=== PATIENT | male | born 1960 | race Caucasian/White ===

== ENCOUNTER 2017-12-13 11:35 | Day surgery (SDC) | payer OTHER ==
[~2017-12-13] VITALS: Ht 175.3 cm; Wt 68.0 kg
[~2017-12-13 11:35] MED LIST: HYDROCODON-ACE1 EA10 PO; IBUPROFEN600 MG PO; LIPITOR20 MG PO; RANITIDINE HCL150 M1 PO; SERTRALINE HCL100 MG PO
[2017-12-13] MEDS ORDERED: AMITRIPTYLINE H25 MG PO (12:05)
[2017-12-13] MEDS ORDERED: DOCUSATE SODIU100 MG PO (12:05)
--- NOTE | 2017-12-13 14:24 | NUR ---
12/13/17 1424 Josefina Crow 1411 PT ARRIVED TO [facility] ON 3L VIA NC. PT DROWSY AND DENIES PAIN AND NAUSEA. PT ASLEEP OFF AND ON. VERONICA AT BEDSIDE.
--- NOTE | 2017-12-13 21:59 | OR ---
[facility] [address], [place] [address] Signed DATE OF OPERATION: 12/13/2017 SURGEON: Padmini Patel MD PREOPERATIVE DIAGNOSES: Episodic left lower abdominal pain and occasional rectal bleeding. POSTOPERATIVE DIAGNOSES: Normal-appearing colon and minimal internal hemorrhoidal changes. PROCEDURE: Total colonoscopy to cecum. ANESTHESIA: Intravenous sedation, fentanyl 150 mcg, Versed 5 mg. INDICATION: This 57-year-old white man is a patient of Dr. Nav Mata at [facility]. He has had recent complaints of left lower abdominal pain and episodic rectal bleeding. He has undergone upper endoscopy by me in the past. He has no family history of colon cancer that he is aware of. He does note constipation and occasions of blood per rectum in a "tearing" sensation from time to time. He showed no evidence of anal fissure so far. He was admitted at this time to undergo colonoscopy. He understands the risks of bleeding, infection, perforation. FINDINGS: The prep was good. Complete colonoscopy was undertaken to the cecum. There was no sign of polyps, diverticular formation, colitis, or cancer. He did have some minimal internal hemorrhoidal change however. I saw no sign of fissure. DESCRIPTION OF PROCEDURE: The patient was brought to the endoscopy suite and placed in lateral decubitus position given intravenous sedation to the point of slurred speech and nystagmus. Digital rectal examination was normal. An Olympus video colonoscope was passed in the rectum and manipulated throughout the colon. Abdominal wall stabilization was undertaken to allow for full intubation of the cecum, which was accomplished. The ileocecal valve and appendiceal orifice were normal. The scope was withdrawn from that point and examination throughout undertaken showing no sign of polyps, diverticular formation, colitis, or cancer. Retroflex view of the Electronically Signed By: PADMINI PATEL MD 12/13/17 2159 PATIENT NAME: OSEAS KOCH OPERATIVE REPORT DATE OF : 64 REPORT #: [id number] PHYSICIAN: PADMINI PATEL MD PCP: NAV MATA MD REPORT IS CONFIDENTIAL AND NOT TO BE RELEASED WITHOUT AUTHORIZATION [facility] [address], [place] [address] Signed rectum was normal, though there were some minimal internal hemorrhoidal changes. The scope was straightened, withdrawn, removed, and the patient was taken to recovery room in good condition. CONCLUDING DIAGNOSIS: No lesion to clearly account for left lower abdominal pain and episodic rectal bleeding. Hemorrhoids most likely cause of bleeding. PLAN: Recommend high-fiber diet and continue use of Metamucil or other fiber supplement. He will return to the ongoing care of Dr. Mata at [facility]. MD ELIEZER Lane/MODL /[id number] cc: Nav Mata MD Copies: NAV MATA MD ~ Electronically Signed By: PADMINI PATEL MD 12/13/17 2159 PATIENT NAME: OSEAS KOCH OPERATIVE REPORT DATE OF : 64 REPORT #: [id number] PHYSICIAN: PADMINI PATEL MD PCP: NAV MATA MD REPORT IS CONFIDENTIAL AND NOT TO BE RELEASED WITHOUT AUTHORIZATION
== END 2017-12-13 14:48 | disposition home or self-care (01) ==
LOC: OPS 11:35 → DS 11:35 → OPS 12:00 → DS 12:00 → OPS 14:48
PROVIDERS: Surgery
PROC: 0DJD8ZZ Inspection of Lower Intestinal Tract, Via Natural or Artificial Opening Endoscopic (ICD-10-PCS; principal; 2017-12-13 12:00)
DX: K64.8 Other hemorrhoids (principal); R13.19 Other dysphagia
CPT/HCPCS: 99153; G0500; J2250; J3010; J7120

== ENCOUNTER 2020-12-07 10:51 | Day surgery (SDC) | payer OTHER ==
[~2020-12-07] VITALS: Ht 160 cm; Wt 74.8 kg
[~2020-12-07 10:51] MED LIST changes: +AMITRIPTYLINE H25 MG PO; +DOCUSATE SODIU100 MG PO
[2020-12-07] MEDS ORDERED: MELATONIN1 MG PO (11:04)
[2020-12-07] MEDS ORDERED: OMEPRAZOLE20 MG PO (11:06)
[2020-12-07] MEDS ORDERED: CORRECTOL5 MG PO (11:06)
[2020-12-07] MEDS ORDERED: MIRTAZAPINE7.5 MG PO (11:06)
[2020-12-07] MEDS ORDERED: PREVALITE PACKET4 GM PO (11:07)
--- NOTE | 2020-12-07 12:53 | NUR ---
PT RESTING IN BED WITH WITH [employer] GUARDS AT BEDSIDE. PT DENIES ANY NEEDS AT THIS TIME AND IS UPDATED WITH APPROX TIME OF PROCEDURE.
--- NOTE | 2020-12-07 14:53 | NUR ---
12/07/20 1453 Tiffanie Wei 1439 PT ARRIVED IN PACU SLEEPY WITH NO C/O'S. ABD SOFT. TRANSPORT GUARDS AT BEDSIDE. 1450 SITTING UP IN BED SIPPING ON WATER.
--- NOTE | 2020-12-08 12:44 | OR ---
[facility] [address] [place], [place] [address] Signed DATE OF OPERATION: 12/07/2020 SURGEON: Padmini Patel MD PREOPERATIVE DIAGNOSES: 1. Left lower abdominal and suprapubic pain. 2. Elevated fecal count protectant. POSTOPERATIVE DIAGNOSIS: Normal-appearing colon and terminal ilium. PROCEDURE: Total colonoscopy to cecum with intubation of ileum and biopsy of rectum. ANESTHESIA: Intravenous sedation; fentanyl 100 mcg and Versed 5 mg. INDICATION: This 60-year-old white man is a prisoner at [facility] and is referred by JOAN Bettencourt for consideration of colonoscopy. The patient has had vague abdominal pain and diarrhea alternating with constipation. Stool studies have been negative. A fecal count protectant was noted to be elevated, which is occasionally associated with excessive white cells in the intestinal lumen. On the basis of his symptoms of suprapubic pain, left lower abdominal pain, and so forth, he is referred for colonoscopy. FINDINGS: The prep was quite good. Complete colonoscopy was undertaken of the cecum without question. Intubation of the ileum was accomplished as well. He had no evidence of diverticular formation, polyps, or cancer. No clear evidence of colitis or ileitis. Biopsies were taken of the rectum to assess for occult colitis. DESCRIPTION OF PROCEDURE: The patient was brought to the endoscopy suite and placed in lateral decubitus position, given intravenous sedation to the point of slurred speech and nystagmus. Digital rectal examination showed a normal prostate. An Olympus video colonoscope was passed in the rectum and manipulated throughout the colon ultimately intubating the cecum itself. The ileocecal valve and appendiceal orifice were normal. Scope was advanced to the ileum. The ileum appeared normal. Scope was withdrawn and careful inspection upon withdrawal of the scope showed no sign Electronically Signed By: PADMINI PATEL MD 12/08/20 1244 PATIENT NAME: OSEAS KOCH OPERATIVE REPORT DATE OF : 64 REPORT #: [id number] PHYSICIAN: PADMINI PATEL MD PCP: PAPI MATA MD REPORT IS CONFIDENTIAL AND NOT TO BE RELEASED WITHOUT AUTHORIZATION [facility] [address] [place] [id number] Signed of abnormality throughout the colon. The rectum itself appeared normal as well, but the biopsy was obtained to assess for occult colitis. Retroflexed view showed no findings of concern. He was taken to recovery room in good condition at the conclusion of the procedure with no known complications. CONCLUDING DIAGNOSES: No lesion to account for symptoms of bloating, diarrhea, constipation, or abdominal pain. This may be a functional disorder in aggregate. Rectal biopsies are pending. Consideration might be made for starting a low FODMAP diet. He will return to the ongoing care of JOAN Bettencourt at [facility]. I am happy to see him again upon referral from Ms. Maldonado. MD ELIEZER Lane/TIFFANIE /[id number] cc: JOAN Kwong Copies: GIGI MALDONADO ~ Electronically Signed By: PADMINI PATEL MD 12/08/20 1244 PATIENT NAME: OSEAS KOCH OPERATIVE REPORT DATE OF : 64 REPORT #: [id number] PHYSICIAN: PADMINI PATEL MD PCP: PAPI MATA MD REPORT IS CONFIDENTIAL AND NOT TO BE RELEASED WITHOUT AUTHORIZATION
--- NOTE | 2020-12-08 15:02 | PATH ---
[facility] [address] [place], [place] [address] Signed SPECIMEN(S): A RECTUM SPECIMEN SOURCE: A. RECTUM CLINICAL HISTORY: Post op: Normal. Colonoscopy. MICROSCOPIC DESCRIPTION: Histologic sections of all submitted blocks are examined by light microscopy. These findings, together with the gross examination, support the pathologic diagnosis. FINAL PATHOLOGIC DIAGNOSIS: Rectum, biopsy: - Rectal mucosa with no histopathologic abnormality. - Negative for active, chronic, or microscopic colitis. - Negative for dysplasia or malignancy. NAL:cml:C2NR GROSS DESCRIPTION: The specimen, labeled "BF, rectum biopsy," is received in formalin and consists of two sweet soft tissue fragments) that measure 0.2-0.3 cm in greatest dimension. The specimen is entirely submitted in cassette (A1). JS (under the direct supervision of a pathologist) The Gross Description was prepared using a voice recognition system. The report was reviewed for accuracy; however, sound-alike word errors, addition and/or deletions may occur. If there is any question about this report, please contact Client Services. PERFORMING LABORATORY: The technical component was performed by [facility], [address] [place] [id number] (Respiratory Equipment Assistant: Glenda Laguerre MD; CLIA# [id number]). [facility] [address] [address] (CLIA# [id number]). Diagnostician: Mora Barrow MD Pathologist Electronically Signed 12/08/2020 PATIENT NAME: OSEAS KOCH PATHOLOGY DATE OF : 64 REPORT #: [id number] PHYSICIAN: [facility] PCP: PAPI MATA MD REPORT IS CONFIDENTIAL AND NOT TO BE RELEASED WITHOUT AUTHORIZATION [address] [address] Signed Copies: ~ PATIENT NAME: OSEAS KOCH PATHOLOGY DATE OF : 64 REPORT #: [id number] PHYSICIAN: [facility] PCP: PAPI MATA MD REPORT IS CONFIDENTIAL AND NOT TO BE RELEASED WITHOUT AUTHORIZATION
== END 2020-12-07 15:10 | disposition home or self-care (01) ==
LOC: OPS 10:51 → DS 10:54 → OPS 13:00 → DS 13:00 → OPS 15:10
PROVIDERS: ATTEND Surgery
PROC: 0DBP8ZX Excision of Rectum, Via Natural or Artificial Opening Endoscopic, Diagnostic (ICD-10-PCS; principal; 2020-12-07 13:00)
DX: R10.32 Left lower quadrant pain (principal); R19.5 Other fecal abnormalities; R19.7 Diarrhea, unspecified; K59.00 Constipation, unspecified; Z91.09 Other allergy status, other than to drugs and biological substances; Z79.1 Long term (current) use of non-steroidal anti-inflammatories (NSAID); Z79.899 Other long term (current) drug therapy; Z20.822 Contact with and (suspected) exposure to COVID-19
CPT/HCPCS: 99153; C9803; G0500; J2250; J3010; J7121; U0003

== ENCOUNTER 2024-03-04 16:58 | Emergency (ER) | payer OTHER ==
[~2024-03-04] VITALS: Ht 175.3 cm; Wt 79.2 kg
[~2024-03-04 16:58] MED LIST changes: +CORRECTOL5 MG PO; +MELATONIN1 MG PO; +MIRTAZAPINE7.5 MG PO; +OMEPRAZOLE20 MG PO; +PREVALITE PACKET4 GM PO
[2024-03-04] MEDS ORDERED: MORPHINE SULFATE 4 MG/ML VIAL IV ONE (19:45)
[2024-03-04] MEDS ORDERED: SODIUM CHLORIDE 0.9% 1,000 ML IV ONE (19:45)
[2024-03-04] MEDS ORDERED: ondansetron HCL 4 MG/2 ML VIAL IV ONE (19:45)
[2024-03-04 20:12] LABS: BASOPHILS 0.7 % (0-2); EOSINOPHILS 0.4 % (0-6); HEMATOCRIT 40.4 % (35.0-50.0); HEMOGLOBIN 13.7 g/dL (12.0-18.0); LYMPHOCYTES 17.4 % (24-44); MCH 29.1 (27-36); MCHC 33.9 g/dl (30-36); MONOCYTES 9.9 % (0-12); NEUTROPHILS 71.6 % (39-80); PLATELET COUNT 263 K/uL (140-440); RDW 14.3 (10.5-15.0)
[2024-03-04 20:28] LABS: ALBUMIN 3.5 g/dL (3.4-5.0); ALBUMIN/GLOBULIN RATIO 0.85 (1.1-2.4); ANION GAP 13.6 (7-21); BILIRUBIN, TOTAL 0.5 ng/dL (0.2-1.0); BUN/CREATININE RATIO 14.91 (6.0-28.6); CREATININE, SERUM 1.14 mg/dL (0.70-1.30); POTASSIUM 3.6 mmol/L (3.5-5.1); PROTEIN, TOTAL 7.6 g/dL (6.4-8.2)
[2024-03-04] MEDS ORDERED: ONDANSETRON ODT8 MG PO (21:55)
[2024-03-04] MEDS ORDERED: TRAMADOL HCL50 MG PO (21:55)
[2024-03-04] MEDS ORDERED: ONDANSETRON 4 MG HOME.PACK SL ONE (22:00)
[2024-03-04] MEDS ORDERED: TRAMADOL HCL 50 MG HOME.PACK PO ONE (22:00)
[2024-03-04 22:21] VITALS: BP 111/60
== END 2024-03-04 22:24 | disposition home or self-care (01) ==
LOC: ED 16:58
PROVIDERS: Family Medicine
DX: K80.50 Calculus of bile duct without cholangitis or cholecystitis without obstruction (principal); K59.00 Constipation, unspecified; J45.909 Unspecified asthma, uncomplicated; K21.9 Gastro-esophageal reflux disease without esophagitis; I10 Essential (primary) hypertension; E78.5 Hyperlipidemia, unspecified; Z87.891 Personal history of nicotine dependence; Z79.899 Other long term (current) drug therapy
CPT/HCPCS: 74177; 80053; 83690; 85025; 96375; 99284-25; A9270; J2270; J2405; J7030; Q9967